=== PATIENT | male | born 1995 | race African-American/Black ===

== ENCOUNTER 2017-05-14 16:23 | Emergency (ER) | payer MEDICAID ==
[~2017-05-14] VITALS: Ht 190.5 cm; Wt 78.2 kg
[~2017-05-14 16:23] MED LIST: DIVA500T52 PO; RISP2 PO
[2017-05-14 16:25] VITALS: BP 143/76
== END 2017-05-14 17:36 | disposition left against medical advice (07) ==
LOC: EMS 16:26
DX: R21 Rash and other nonspecific skin eruption (principal); F17.210 Nicotine dependence, cigarettes, uncomplicated; F12.90 Cannabis use, unspecified, uncomplicated; F19.90 Other psychoactive substance use, unspecified, uncomplicated; Z53.21 Procedure and treatment not carried out due to patient leaving prior to being seen by health care provider